=== PATIENT | male | born 1990 | race Caucasian/White ===

== ENCOUNTER 2017-11-18 08:05 | Emergency (ER) | payer MEDICAID ==
[~2017-11-18] VITALS: Ht 195.6 cm; Wt 108.4 kg
[2017-11-18 08:42] VITALS: BP 109/75
== END 2017-11-18 09:05 | disposition home or self-care (01) ==
LOC: ER 08:10
DX: H66.91 Otitis media, unspecified, right ear (principal); H61.21 Impacted cerumen, right ear